=== PATIENT | female | born 1960 | race Caucasian/White ===

== ENCOUNTER 2018-06-28 21:58 | Emergency (ER) | payer BC ==
[2018-06-28 22:14] LABS: URINE APPEARANCE CLEAR; URINE BILIRUBIN NEGATIVE (NEGATIVE); URINE BLOOD TRACE-I (NEGATIVE); URINE COLOR YELLOW; URINE GLUCOSE (UA) NEGATIVE (NEGATIVE); URINE KETONE NEGATIVE (NEGATIVE); URINE LEUKOCYTE ESTERASE NEGATIVE (NEGATIVE); URINE NITRITE NEGATIVE (NEGATIVE); URINE PROTEIN NEGATIVE (NEGATIVE); URINE UROBILINOGEN 0.2 E.U./dL (0.20 - 1.00)
--- NOTE | 2018-06-28 22:16 | Emergency Department Record ---
History of Present Illness - General Chief complaint: Flank Pain Stated complaint: KIDNEY STONE Time Seen by Provider: 06/28/18 22:11 Source: Patient Mode of Arrival: Ambulatory Limitations: No limitations - History of Present Illness Initial comments: 58 yo female presents to ED for evaluation of left sided flank pain symptoms that began this evening. Patient reports that she was diagnosed with a bladder infection 2 days ago, started on Bactrim. Patient reports that tonight however her symptoms worsened resulting in flank pain, dysuria symptoms, nausea, and chills. Patient denies previous history of kidney stones, denies health problems other than elevated cholesterol. MD Complaint: Other Onset/Timin -: Days(s) Location: Other (Left flank) Severity: Severe Quality: Aching, Sharp, Stabbing Consistency: Constant Improves with: None Worsens with: None Patient : No Associated Symptoms: Nausea/vomiting - Related Data Home Medications Medication Instructions Recorded Confirmed Last Taken Lamotrigine [Lamictal Xr] 50 mg PO DAILY 06/28/18 06/28/18 Unknown Levothyroxine Sodium [Synthroid] 88 mcg PO DAILY 06/28/18 06/28/18 Unknown Rosuvastatin Calcium [Crestor] 40 mg PO ASDIR 06/28/18 06/28/18 Unknown Sulfamethoxazole/Trimethoprim 1 each PO BID 06/28/18 06/28/18 Unknown [Bactrim Ds Tablet] Allergies Allergy/AdvReac Type Severity Reaction Status Date / Time Iodinated Contrast- Oral and Allergy ANAPHYLAXIS Verified 06/28/18 22:35 IV Dye morphine Allergy feels like Verified 06/28/18 22:20 ants crawling on skin Review of Systems Constitutional: Reports: Chills. Denies: Fever, Malaise, Night sweats Eyes: Denies: Eye discharge, Eye pain ENT: Denies: Congestion, Ear pain, Epistaxis Respiratory: Denies: Cough, Dyspnea Cardiovascular: Denies: Chest pain, Dyspnea on exertion Endocrine: Denies: Fatigue, Heat or cold intolerance Gastrointestinal: Reports: Nausea. Denies: Abdominal pain, Constipation Genitourinary: Reports: Dysuria. Denies: Incontinence, Retention Musculoskeletal: Reports: Back pain. Denies: Arthralgia Skin: Denies: Bruising, Change in color Neurological: Denies: Abnormal gait, Confusion, Headache, Seizure Psychiatric: Denies: Anxiety Hematological/Lymphatic: Denies: Anemia, Blood Clots Physical Exam - General General Appearance: Alert, Oriented x3, Cooperative, Moderate distress Limitations: No limitations - Head Head exam: Atraumatic, Normocephalic, Normal inspection Head exam detail: negative: Abrasion, Contusion, Murray's sign, General tenderness, Hematoma, Laceration - Eye Eye exam: Normal appearance. negative: Conjunctival injection, Periorbital swelling, Periorbital tenderness, Scleral icterus - ENT Ear exam: negative: Auricular hematoma, Auricular trauma Nasal Exam: negative: Active bleeding, Discharge, Dried blood, Foreign body Mouth exam: negative: Drooling, Laceration, Muffled voice, Tongue elevation - Neck Neck exam: Normal inspection. negative: Meningismus, Tenderness - Respiratory Respiratory exam: Normal lung sounds bilaterally. negative: Rales, Respiratory distress, Rhonchi, Stridor - Cardiovascular Cardiovascular Exam: Regular rate, Normal rhythm, Normal heart sounds - GI/Abdominal GI/Abdominal exam: Soft. negative: Rebound, Rigid, Tenderness - Rectal Rectal exam: Deferred - exam: Deferred - Extremities Extremities exam: Normal inspection. negative: Calf tenderness, Pedal edema, Tenderness - Back Back exam: Reports: CVA tenderness (L). Denies: CVA tenderness (R) - Neurological Neurological exam: Alert, Normal gait, Oriented X3 - Psychiatric Psychiatric exam: Normal affect, Normal mood - Skin Skin exam: Normal color. negative: Abrasion Type of lesion: negative: abrasion Course Vital Signs 06/28/18 22:05 Temperature 97.7 F Pulse Rate [ 81 Pulse Ox Probe] Respiratory 20 Rate Blood Pressure 119/78 [Left Arm] Pulse Ox 96 - Reevaluation(s) Reevaluation #1: 06/28/18 22:50 Laboratory studies were reviewed and are grossly unremarkable for an acute process. UA: 3-6 RBCs Bacteria: None 0-2 WBCs 0-2 Epithelial cells Reevaluation #2: 06/28/18 23:51 CT Abdomen/Pelvis: No acute abnormality Diverticulosis Patient reassessed and reports that her pain symptoms are significantly improved , reports only a dull ache. Patient and her family members were updated on all results, and the patient appears stable for discharge at this time. Reevaluation #3: 06/29/18 00:16 Patient was reassessed, reports that her pain symptoms continue to be controlled. Patient reports that she is ready to go home at this time. Medical Decision Making - Lab Data Result diagrams: 06/28/18 22:17 06/28/18 22:17 Disposition Disposition: Discharge Clinical Impression: Flank pain, acute Disposition: Home, Self-Care Condition: (2) Stable Instructions: Flank Pain (ED) Additional Instructions: Return to ED if your symptoms worsen or if you have any concerns. Ibuprofen as directed. Follow-up with your family doctor in 1-3 days as directed. Forms: Patient Portal Access Time of Disposition: 00:16 Quality - Quality Measures Quality Measures: N/A - Blood Pressure Screening Does Patient Have Any of the Following: No Blood Pressure Classification: Normal BP Reading Systolic Measurement: 115 Diastolic Measurement: 70 Screening for High Blood Pressure: < Normal BP, F/U Not Required > [G8783]
[2018-06-28] MEDS: 0.9 % SODIUM CHLORIDE 1000ML 1,000 ML IV SCH (22:20)
[2018-06-28 22:22] LABS: URINE BACTERIA NONE SEEN; URINE EPITHELIAL CELLS 0 - 2 (FEW); URINE WBC 0 - 2 (0-2/hpf)
[2018-06-28 22:23] LABS: RED BLOOD COUNT 4.23 M/uL (3.80-5.40)
[2018-06-28] MEDS: ONDANSETRON HCL IV 4 MG/2 ML VIAL IVP ONE (22:23)
[2018-06-28 22:24] LABS: BASO % 0.6 % (0-6); EOS % 3.1 % (0-6); GRAN % 52.6 % (47-80); HEMATOCRIT 36.3 % (35.0-47.0); LYMPH % 35.7 % (16-45); MEAN CELL VOLUME 85.8 fl (81-97); MEAN CORPUSCULAR HEMOGLOBIN 28.4 pg (27-33); MEAN CORPUSCULAR HGB CONC 33.1 g/dl (32-36); MEAN PLATELET VOLUME 9.7 fl (7.4-10.4); PLATELET COUNT 305 K/uL (130-400); RED CELL DISTRIBUTION WIDTH 12.8 % (11.5-14.5)
[2018-06-28] MEDS: KETOROLAC 30 MG/ML VIAL IVP ONE (22:24)
[2018-06-28] MEDS: HYDROMORPHONE HCL 2 MG/ML VIAL IVP ONE (22:31)
[2018-06-28 22:36] LABS: BLOOD UREA NITROGEN 11 mg/dL (6-20); EST GLOMERULAR FILTRATION RATE > 60 mL/min
[2018-06-28 22:37] LABS: TOTAL PROTEIN 7.4 g/dL (6.6-8.7)
[2018-06-28 22:39] LABS: GLUCOSE,RANDOM 104 mg/dL (74-109)
[2018-06-28 22:42] LABS: ALB/GLOB RATIO 1.6 (1.1-1.8); ALBUMIN 4.6 g/dL (4.0-5.0); ALKALINE PHOSPHATASE 90 U/L (35-104); ALT/SGPT 14 U/L (<33); AST/SGOT 19 U/L (10.0-35.0)
== END 2018-06-29 00:36 | disposition home or self-care (01) ==
LOC: ER 21:58
DX: R10.32 Left lower quadrant pain (principal); R11.2 Nausea with vomiting, unspecified; R30.0 Dysuria; Z87.891 Personal history of nicotine dependence
CPT/HCPCS: 99284 ×2; 96374; 96375; 96361; 83690; 85025; 80053; 81001; 74176; J1885; J2405; J1170; J7030